=== PATIENT | male | born 1975 | race Hispanic/Latino ===

== ENCOUNTER 2021-06-01 03:12 | Emergency (ER) | payer SELFPAY ==
[2021-06-01 04:34] VITALS: BP 134/87
[2021-06-01] MEDS ORDERED: dexAMETHasone 20 MG/5 ML VIAL IV ONE (05:24)
[2021-06-01] MEDS ORDERED: KETOROLAC 30 MG/1 ML INJ IV ONE (05:24)
[2021-06-01] MEDS ORDERED: SULFAMETHOXAZOLE/TRIMETHOPRIM 800/160MG DS TAB PO ONE (05:24)
[2021-06-01] MEDS ORDERED: diphenhydrAMINE 50 MG/ML VIAL IV ONE (05:25)
[2021-06-01] MEDS ORDERED: FAMOTIDINE 20 MG/2 ML INJ IV ONE (05:25)
[2021-06-01 05:55] LABS: Basophils # (Auto) 0.1 K/mm3 (0.0-0.1); Basophils % (Auto) 0.3 % (0.0-1.8); Eosinophils # (Auto) 0.1 K/mm3 (0.0-0.4); Eosinophils % (Auto) 0.9 % (0.0-4.3); Hematocrit 40.8 % (35.5-45.6); Lymphocytes # (Auto) 1.4 K/mm3 (1.2-5.4); Lymphocytes % (Auto) 8.3 % (13.4-35.0); Mean Corpuscular HGB Conc 34 % (32-34); Mean Corpuscular Volume 96 fl (84-94); Monocytes # (Auto) 1.5 K/mm3 (0.0-0.8); Platelet Count 296 K/mm3 (140-440); Red Blood Count 4.25 M/mm3 (3.65-5.03)
--- NOTE | 2021-06-01 06:23 | Event Note ---
ED Screening Note Date of service: 06/01/21 Time: 05:05 ED Screening Note: Patient is a 46-year-old white male with no past medical history who presents to the ED with complaint of acute onset persistent right hand and right wrist pain that radiates to the right upper arm proximally with erythematous rash on the right third arm and right forearm for the last 8 hours after being bitten by an unknown insect. Patient states that he was working in the yard lifting different things when he felt a sharp object house his right thumb. Patient states that at the time he did not think much of it but subsequently the pain started throbbing on his right thumb and prior to arrival in the ED for ev aluation, the pain has been radiating proximally to the right forearm and right upper arm with some tracking on the right forearm. Patient states that he also has been having chills, numbness and tingling of right arm and right hand, lightheadedness and nausea. Patient denies dizziness, syncope, traumatic injury, chest pain or shortness of breath, diarrhea, vomiting, fall, abdominal pain or neck pain. This initial assessment/diagnostic orders/clinical plan/treatment(s) is/are subject to change based on patients health status, clinical progression and re- assessment by fellow clinical providers in the ED. Further treatment and workup at subsequent clinical providers discretion. Patient/guardian urged not to elope from the ED as their condition may be serious if not clinically assessed and managed. Initial orders include: CBC, CMP, clindamycin 900 mg IV x1, Benadryl 25 mg IV x1, Decadron 10 mg IV x1, Bactrim DS p.o. x1, ketorolac 30 mg IV x1 and Pepcid 20 mg IV x1
[2021-06-01 06:40] LABS: Alanine Aminotransferase 10 units/L (7-56); Albumin 4.2 g/dL (3.9-5); Blood Urea Nitrogen 20 mg/dL (9-20); Calcium 9.8 mg/dL (8.4-10.2); Hemolysis Index 23
[2021-06-01 07:02] LABS: BUN/Creatinine Ratio 33
--- NOTE | 2021-06-01 07:56 | Emergency Department Report ---
ED General Adult HPI - General Chief complaint: Animal Bite Stated complaint: BITE, R SIDE PAIN Time Seen by Provider: 06/01/21 07:24 Source: patient Mode of arrival: Ambulatory Limitations: No Limitations - History of Present Illness Initial comments: Patient is a 46-year-old white male with no past medical history who presents to the ED with complaint of acute onset persistent right hand and right wrist pain that radiates to the right upper arm proximally with erythematous rash on the right third arm and right forearm for the last 8 hours after being bitten by an unknown insect. Patient states that he was working in the yard lifting different things when he felt a sharp object house his right thumb. Patient states that at the time he did not think much of it but subsequently the pain started throbbing on his right thumb and prior to arrival in the ED for evaluation, the pain has been radiating proximally to the right forearm and right upper arm with some tracking on the right forearm. Patient states that he also has been having chills, numbness and tingling of right arm and right hand, lightheadedness and nausea. Patient denies dizziness, syncope, traumatic injury, chest pain or shortness of breath, diarrhea, vomiting, fall, abdominal pain or neck pain. Severity scale (0 -10): 10 - Related Data Previous Rx's Medication Instructions Recorded Last Taken Type Acetaminophen/Codeine [Tylenol 1 tab PO Q8H PRN #4 tab 06/01/21 Unknown Rx /Codeine # 3 tab] Clindamycin [Clindamycin CAP] 300 mg PO Q6H 10 Days #40 capsule 06/01/21 Unknown Rx Naproxen [Naprosyn] 500 mg PO BID PRN #20 tablet 06/01/21 Unknown Rx Allergies Allergy/AdvReac Type Severity Reaction Status Date / Time No Known Allergies Allergy Unverified 06/01/21 04:31 ED Review of Systems ROS: Stated complaint: BITE, R SIDE PAIN Other details as noted in HPI Constitutional: denies: chills, diaphoresis, fever, malaise, weakness Musculoskeletal: joint swelling, arthralgia Skin: rash Neurological: denies: numbness, paresthesias ED Past Medical Hx - Past Medical History Previous Medical History?: No - Surgical History Past Surgical History?: Yes Additional Surgical History: left shoulder hernia repair - Medications Home Medications: Home Medications Medication Instructions Recorded Confirmed Last Taken Type Acetaminophen/Codeine [Tylenol 1 tab PO Q8H PRN #4 tab 06/01/21 Unknown Rx /Codeine # 3 tab] Clindamycin [Clindamycin CAP] 300 mg PO Q6H 10 Days #40 capsule 06/01/21 Unknown Rx Naproxen [Naprosyn] 500 mg PO BID PRN #20 tablet 06/01/21 Unknown Rx ED Physical Exam - General Limitations: No Limitations General appearance: alert, in no apparent distress - Head Head exam: Present: atraumatic, normocephalic - Eye Eye exam: Present: normal appearance - Respiratory Respiratory exam: Absent: respiratory distress - Cardiovascular Cardiovascular Exam: Present: regular rate - Expanded Upper Extremity Exam Right Forearm Wrist exam: Present: full ROM, tenderness, erythema. Absent: abrasion, laceration, ecchymosis, deformity Hand Wrist exam: Present: full ROM. Absent: deformity Hand L/R Front: 1 - Positive: other (Erythema with tenderness to palpation noted) 2 - Positive: other (Minimal area of erythema noted without significant tenderness to palpation; full range of motion of the thumb and palm noted; normal perfusion noted) Vascular: Present: normal capillary refill. Absent: vascular compromise, pulse deficit radial art, pulse deficit ulnar art - Neurological Exam Neurological exam: Present: alert, oriented X3 - Psychiatric Psychiatric exam: Present: normal affect, normal mood - Skin Skin exam: Present: warm, dry, intact, normal color. Absent: rash ED Course Vital Signs 06/01/21 04:32 Temperature 97.0 F L Pulse Rate 76 Respiratory 17 Rate Blood Pressure 134/87 O2 Sat by Pulse 100 Oximetry ED Medical Decision Making - Lab Data Result diagrams: 06/01/21 05:34 06/01/21 05:34 Lab Results 06/01/21 06/01/21 Range/Units 05:34 05:34 WBC 16.4 H (4.5-11.0) K/mm3 RBC 4.25 (3.65-5.03) M/mm3 Hgb 14.0 (11.8-15.2) gm/dl Hct 40.8 (35.5-45.6) % MCV 96 H (84-94) fl MCH 33 H (28-32) pg MCHC 34 (32-34) % RDW 14.0 (13.2-15.2) % Plt Count 296 (140-440) K/mm3 Lymph % (Auto) 8.3 L (13.4-35.0) % [place] % (Auto) 9.0 H (0.0-7.3) % Eos % (Auto) 0.9 (0.0-4.3) % Baso % (Auto) 0.3 (0.0-1.8) % Lymph # (Auto) 1.4 (1.2-5.4) K/mm3 [place] # (Auto) 1.5 H (0.0-0.8) K/mm3 Eos # (Auto) 0.1 (0.0-0.4) K/mm3 Baso # (Auto) 0.1 (0.0-0.1) K/mm3 Seg Neutrophils % 81.5 H (40.0-70.0) % Seg Neutrophils # 13.4 H (1.8-7.7) K/mm3 Sodium 136 L (137-145) mmol/L Potassium 4.6 (3.6-5.0) mmol/L Chloride 102.6 (98-107) mmol/L Carbon Dioxide 24 (22-30) mmol/L Anion Gap 14 mmol/L BUN 20 (9-20) mg/dL Creatinine 0.6 L (0.8-1.3) mg/dL Estimated GFR > 60 ml/min BUN/Creatinine Ratio 33 % Glucose 92 (75-100) mg/dL Calcium 9.8 (8.4-10.2) mg/dL Total Bilirubin 0.60 (0.1-1.2) mg/dL AST 13 (5-40) units/L ALT 10 (7-56) units/L Alkaline Phosphatase 77 (35-129) units/L Total Protein 6.5 (6.3-8.2) g/dL Albumin 4.2 (3.9-5) g/dL Albumin/Globulin Ratio 1.8 % - Radiology Data Radiology results: report reviewed Right wrist radiograph, 3 views HISTORY: Pain and swelling COMPARISON: None FINDINGS: There is nonspecific soft tissue swelling about the wrist. No acute fracture or malalignment. Mild thumb CMC and STT osteoarthritis. No aggressive cortical destructive changes. - Medical Decision Making White count 16 on CBC. Patient has full range of motion of the wrist and hands and fingers. X-ray of the wrist is negative for any acute bony abnormalities. He remains afebrile and nontachycardic. Patient given dose of IV clindamycin and oral Bactrim via Milton Wan PA-C. His pain is controlled, he is well- appearing, he is stable for discharge home. Cellulitis outlined on exam with marker. Patient instructed on diagnosis, plan of care, and signs and symptoms that should prompt immediate return to the emergency department in detail, he verbalizes understanding. He is to follow-up with primary care doctor in 2 to 3 days. Temp repeated at 98.1. Critical care attestation.: If time is entered above; I have spent that time in minutes in the direct care of this critically ill patient, excluding procedure time. ED Disposition Clinical Impression: Cellulitis Disposition: 01 HOME / SELF CARE / HOMELESS Is pt being admited?: No Condition: Stable Instructions: Cellulitis, Adult Prescriptions: Clindamycin [Clindamycin CAP] 300 mg PO Q6H 10 Days #40 capsule Naproxen [Naprosyn] 500 mg PO BID PRN #20 tablet PRN Reason: pain Acetaminophen/Codeine [Tylenol /Codeine # 3 tab] 1 tab PO Q8H PRN #4 tab PRN Reason: Pain , Severe (7-10) Referrals: [facility] [Provider Group] - 3-5 Days Forms: Work/School Release Form(ED)
[2021-06-01] MEDS ORDERED: HYDROcodone/ACETAMINOPHEN 5-325 MG TAB PO ONE (08:18)
--- NOTE | 2021-06-01 08:41 | XRay Report ---
Right wrist radiograph, 3 views HISTORY: Pain and swelling COMPARISON: None FINDINGS: There is nonspecific soft tissue swelling about the wrist. No acute fracture or malalignmen t. Mild thumb CMC and STT osteoarthritis. No aggressive cortical destructive changes. Signer Name: Gurvinder Guzman MD Signed: 06/01/2021 8:37 AM Workstation Name: [id number]
== END 2021-06-01 09:15 | disposition home or self-care (01) ==
LOC: ED 03:12
DX: L03.90 Cellulitis, unspecified (principal); Z79.899 Other long term (current) drug therapy; Z98.890 Other specified postprocedural states
CPT/HCPCS: 36415; 73110; 80053; 85025; 96365; 96375; 99284; J1100; J1200; J1885